=== PATIENT | female | born 1990 | race Native Hawaiian/Other Pacific Islander ===

== ENCOUNTER 2020-12-25 10:26 | Emergency (ER) | payer OTHER, MEDICAID, SELFPAY ==
[2020-12-25 10:35] VITALS: BP 120/66; PULSE 79; RESP 18; TEMP 36.6; O2SAT 96; BMI 37.8
--- NOTE | 2020-12-25 10:41 | PC.NURSE ---
Implant for control, L-arm
--- NOTE | 2020-12-25 10:54 | PC.NURSE ---
Patient states she has been taking her neighbors antibiotics for her tooth pain x 2 days and she has not been taking her Sertraline for the past 4 days due to it making her nauseous.
--- NOTE | 2020-12-25 11:12 | ED.GENADULT ---
HPI - General Adult General Chief complaint: Dental/Oral Stated complaint: wisdom tooth pain Time Seen by Provider: 12/25/20 10:35 Source: family Mode of arrival: Ambulatory Limitations: no limitations History of Present Illness HPI narrative: Patient is a 30-year-old female. Has no issues with her wisdom teeth. Is scheduled to see a dentist in 1 week from now. Is here for evaluation of pain in her left lower wisdom tooth. No fevers. No problems swallowing. Has been doing Tylenol and ibuprofen with only minimal relief. Related Data Home Medications Medication Instructions Recorded Confirmed sertraline 50 mg tablet 50 mg PO DAILY 12/25/20 12/25/20 Previous Rx's Medication Instructions Recorded tramadol 50 mg tablet 50 mg PO Q8H PRN #7 tab 12/25/20 Allergies Allergy/AdvReac Type Severity Reaction Status Date / Time No Known Drug Allergies Allergy Verified 12/25/20 10:49 Review of Systems ENT Ears, Nose, Mouth, and Throat: Reports system reviewed and no additional complaints, except as documented and Reports as per HPI Respiratory Respiratory: Reports as per HPI and Reports system reviewed and no additional complaints, except as documented Integumentary/Breasts Skin/Breast: Denies rash Neurologic Neurologic: Reports system reviewed and no additional complaints, except as documented Hematologic/Lymphatic On Anticoagulants: No Patient History Medical History Healthy adult Social History Smoking Status: Current every day smoker Smoking Status: Current every day smoker alcohol intake frequency: 0-2 drinks per day Alcohol type: hard liquor Substance Use Type: marijuana Exam Initial Vital Signs Initial Vital Signs: Vital Signs Temperature 97.9 F 12/25/20 10:35 Pulse Rate 79 12/25/20 10:35 Respiratory Rate 18 12/25/20 10:35 Blood Pressure 120/66 12/25/20 10:35 Pulse Oximetry 96 12/25/20 10:35 Const General: cooperative, healthy appearing and comfortable HENMN Head: normal to inspection and normocephalic Ears: TM's normal bilaterally Nose: external nose normal Face and sinus: normal facial exam Mouth: oral mucosae normal Teeth and gingiva: no caries and other ( 4 wisdom teeth present, no redness.) Neck Lymphatic: No lymphadenopathy Resp Effort & Inspection: normal respiratory effort Auscultation: clear to auscultation bilaterally Cardio Rate: regular rate Rhythm: regular rhythm Skin Lesions: no lesions Rashes: no rashes Neuro General: patient alert, patient awake and patient oriented x3 Extrem General: normal to inspection and capillary refill normal Psych Appearance: grossly normal Course Vital Signs Vital signs: Vital Signs - 8 hr // 10:35 Temperature 97.9 F Pulse Rate 79 Respiratory Rate 18 Blood Pressure 120/66 Pulse Oximetry 96 Medical Decision Making MDM Narrative Medical decision making narrative: There is no signs of any abscess. No indication for antibiotics. No indication for radiologic studies. She has a follow-up with dentist already scheduled. Will have her keep this appointment. Will provided very short course of pain medication to help with her symptoms. She was given return precautions and follow-up instructions. She expressed understanding and agreement. Discharge Plan Departure Patient Disposition: Home Clinical Impression: Pain, dental Instructions: DI for Dental Pain Activity Restrictions/Additional Instructions: it is important that you continue to take the Tylenol/ibuprofen for discomfort. Is also important that you keep your appointment with your dentist as scheduled for next week. Prescriptions: New tramadol 50 mg tablet 50 mg PO Q8H PRN (Reason: pain) Qty: 7 RF: 0 No Action sertraline 50 mg tablet 50 mg PO DAILY RF: 0
== END 2020-12-25 11:25 | disposition home or self-care (01) ==
PROVIDERS: Emergency Provider Emergency Medicine
DX: K08.89 Other specified disorders of teeth and supporting structures (principal)
CPT/HCPCS: 99281